=== PATIENT | female | born 1945 | race Caucasian/White ===

== ENCOUNTER 2019-04-16 23:04 | Inpatient (IN) ==
[2019-04-17] MEDS ORDERED: MAGNESIUM SULF RIDER 4 GM in PREMIX 1 EACH IV PRN (02:43)
[2019-04-17] MEDS ORDERED: MAGNESIUM SULF RIDER 2 GM in PREMIX 1 EACH IV PRN (02:43)
[2019-04-17] MEDS: ONDANSETRON 4 MG/2 ML VIAL IV PRN (03:16)
[2019-04-17] MEDS: SIMETHICONE CHEW 125 MG TABLET PO PRN ×3 (03:18→21:19)
[2019-04-17] MEDS: SODIUM CHLORIDE 0.9% 1,000 ML IV SCH ×2 (03:18→14:03)
[2019-04-17 08:54] LABS: Basophils % 0.7 % (0.0-0.8); Hematocrit 30.9 VOL% (35.7-47.0); Hemoglobin 9.9 GM/DL (12.0-16.0); Immature Granulocytes Absolute 0.04 #; Lymphocytes # 0.5 10*3/uL (1.4-4.0); Lymphocytes % 12.2 % (21.3-54.2); Mean Corpuscular Volume 93.4 FL (87-102); Monocytes % 14.4 % (1.7-12.7); Neutrophils % 70.7 % (38.7-73.9); Platelet Count 125 T/CUMM (130-400); Red Blood Count 3.31 MC/CUMM (3.8-5.5); Red Cell Distribution Width 19.9 % (9.3-17.3); White Blood Count 4.2 T/CUMM (4-12)
[2019-04-17 09:10] LABS: Albumin 2.5 G/DL (3.4-5.0); Bilirubin,Total 0.6 MG/DL (0.2-1.0); Calcium 7.4 MG/DL (8.5-10.1); Osmolality,Calculated 271.8 MOS/KG (273-304); Total Protein 5.2 G/DL (6.4-8.3)
[2019-04-17 09:22] LABS: Anisocytosis 1+; Band Neutrophils 49 % (0-10); Eosinophils 1 % (0-10); Lymphocytes 14 % (20-55); Macrocytosis 1+; Metamyelocytes 1 %; Myelocytes 1 %; Platelet Estimate Adequate; Poikilocytosis Slight; Polychromasia Slight; Segmented Neutrophils 22 % (50-85); Total Cells Counted 100
[2019-04-17] MEDS ORDERED: POTASSIUM CHLORIDE RIDER 10 MEQ in PREMIX 1 EACH IV PRN (09:43)
[2019-04-17] MEDS: POTASSIUM CHLORIDE 20 MEQ TABLET PO PRN ×4 (11:46→21:19)
[2019-04-18] MEDS: SODIUM CHLORIDE 0.9% 1,000 ML IV SCH ×3 (00:08→22:23)
[2019-04-18 05:17] LABS: Basophils % 1.3 % (0.0-0.8); Eosinophils # 0.1 10*3/uL (0.0-0.87); Eosinophils % 2.8 % (0.00-10.9); Hematocrit 29.9 VOL% (35.7-47.0); Hemoglobin 9.3 GM/DL (12.0-16.0); Immature Granulocytes % 0.9 %; Immature Granulocytes Absolute 0.03 #; Lymphocytes # 0.7 10*3/uL (1.4-4.0); Lymphocytes % 22.2 % (21.3-54.2); Mean Corpuscular HGB Conc 31.1 GM/DL (32-36); Mean Corpuscular Volume 94.9 FL (87-102); Monocytes % 26.3 % (1.7-12.7); Neutrophils % 46.5 % (38.7-73.9); Platelet Count 134 T/CUMM (130-400); Red Blood Count 3.15 MC/CUMM (3.8-5.5); Red Cell Distribution Width 19.5 % (9.3-17.3); White Blood Count 3.2 T/CUMM (4-12)
[2019-04-18 05:46] LABS: Band Neutrophils 4 % (0-10); Eosinophils 3 % (0-10); Lymphocytes 29 % (20-55); Segmented Neutrophils 43 % (50-85); Total Cells Counted 100
[2019-04-18 05:47] LABS: Anisocytosis 1+; Atypical Lymphocytes Few; Hypochromasia Slight; Microcytosis 1+; Ovalocytes Slight
[2019-04-18 05:48] LABS: Platelet Estimate Adequate; Tear Drop Cells Slight
[2019-04-18 06:05] LABS: Albumin 2.4 G/DL (3.4-5.0); Bilirubin,Total 0.6 MG/DL (0.2-1.0); Calcium 7.4 MG/DL (8.5-10.1); Osmolality,Calculated 272.7 MOS/KG (273-304)
[2019-04-18] MEDS: POTASSIUM CHLORIDE 20 MEQ TABLET PO PRN ×2 (08:29→20:57)
[2019-04-18] MEDS: SIMETHICONE CHEW 125 MG TABLET PO PRN ×2 (08:30→14:09)
[2019-04-18] MEDS ORDERED: LOPERAMIDE 2 MG CAPSULE PO ONE (11:03)
[2019-04-18] MEDS: CHOLESTYRAMINE 4 GM PACK PO SCH ×2 (11:43→20:57)
[2019-04-18] MEDS: DIPHENOXYLATE/ATROPINE 2.5-0.025 MG TABLET PO PRN (11:43)
[2019-04-18] MEDS: LOPERAMIDE 2 MG CAPSULE PO PRN (20:57)
[2019-04-19] MEDS: POTASSIUM CHLORIDE 20 MEQ TABLET PO PRN ×4 (00:12→13:14)
[2019-04-19 06:07] LABS: Basophils # 0.1 10*3/uL (0.0-0.2); Basophils % 1.4 % (0.0-0.8); Eosinophils # 0.1 10*3/uL (0.0-0.87); Eosinophils % 2.5 % (0.00-10.9); Hematocrit 32.1 VOL% (35.7-47.0); Hemoglobin 10.2 GM/DL (12.0-16.0); Immature Granulocytes % 1.1 %; Immature Granulocytes Absolute 0.04 #; Lymphocytes # 0.7 10*3/uL (1.4-4.0); Lymphocytes % 20.4 % (21.3-54.2); Mean Corpuscular HGB Conc 31.8 GM/DL (32-36); Monocytes % 31.4 % (1.7-12.7); Neutrophils % 43.2 % (38.7-73.9); Platelet Count 166 T/CUMM (130-400); Red Blood Count 3.45 MC/CUMM (3.8-5.5); Red Cell Distribution Width 18.7 % (9.3-17.3); White Blood Count 3.5 T/CUMM (4-12)
[2019-04-19 06:32] LABS: Atypical Lymphocytes Few; Band Neutrophils 7 % (0-10); Eosinophils 3 % (0-10); Lymphocytes 17 % (20-55); Microcytosis 1+; Ovalocytes Few; Segmented Neutrophils 48 % (50-85); Total Cells Counted 100
[2019-04-19 06:33] LABS: Anisocytosis 1+; Hypochromasia 1+; Platelet Estimate Adequate; Tear Drop Cells Slight
[2019-04-19 06:56] LABS: Albumin 2.4 G/DL (3.4-5.0); Bilirubin,Total 0.7 MG/DL (0.2-1.0); Calcium 7.8 MG/DL (8.5-10.1); Total Protein 5.2 G/DL (6.4-8.3)
[2019-04-19] MEDS: CHOLESTYRAMINE 4 GM PACK PO SCH ×2 (08:26→22:09)
[2019-04-19] MEDS: DIPHENOXYLATE/ATROPINE 2.5-0.025 MG TABLET PO PRN ×2 (08:27→22:16)
[2019-04-19] MEDS: SIMETHICONE CHEW 125 MG TABLET PO PRN ×2 (08:30→14:17)
[2019-04-19] MEDS: SODIUM CHLORIDE 0.9% 1,000 ML IV SCH ×2 (09:53→23:08)
[2019-04-19] MEDS: DICYCLOMINE 10 MG CAPSULE PO PRN ×2 (14:17→22:09)
[2019-04-19] MEDS: ONDANSETRON 4 MG/2 ML VIAL IV PRN (14:18)
[2019-04-19] MEDS: LOPERAMIDE 2 MG CAPSULE PO PRN (22:10)
[2019-04-20 04:41] LABS: Basophils % 1.1 % (0.0-0.8); Eosinophils # 0.2 10*3/uL (0.0-0.87); Eosinophils % 6.3 % (0.00-10.9); Hematocrit 30.2 VOL% (35.7-47.0); Hemoglobin 9.4 GM/DL (12.0-16.0); Immature Granulocytes % 3.7 %; Immature Granulocytes Absolute 0.13 #; Lymphocytes % 27.4 % (21.3-54.2); Mean Corpuscular HGB Conc 31.1 GM/DL (32-36); Mean Corpuscular Volume 95.3 FL (87-102); Mean Platelet Volume 9.8 FL (9.6-12.0); Monocytes % 26.6 % (1.7-12.7); Neutrophils % 34.9 % (38.7-73.9); Platelet Count 169 T/CUMM (130-400); Red Blood Count 3.17 MC/CUMM (3.8-5.5); Red Cell Distribution Width 18.8 % (9.3-17.3); White Blood Count 3.5 T/CUMM (4-12)
[2019-04-20 05:04] LABS: Band Neutrophils 14 % (0-10); Eosinophils 8 % (0-10); Hypochromasia 2+; Lymphocytes 23 % (20-55); Metamyelocytes 1 %; Platelet Estimate Normal; Segmented Neutrophils 27 % (50-85); Total Cells Counted 100
[2019-04-20 05:05] LABS: Albumin 2.2 G/DL (3.4-5.0); Bilirubin,Total 0.5 MG/DL (0.2-1.0); Calcium 7.9 MG/DL (8.5-10.1); Osmolality,Calculated 270.7 MOS/KG (273-304); Total Protein 4.9 G/DL (6.4-8.3)
[2019-04-20] MEDS: CHOLESTYRAMINE 4 GM PACK PO SCH (08:33)
[2019-04-20] MEDS: POTASSIUM CHLORIDE 20 MEQ TABLET PO PRN (08:34)
[2019-04-20] MEDS: DIPHENOXYLATE/ATROPINE 2.5-0.025 MG TABLET PO PRN (08:34)
[2019-04-20] MEDS: DICYCLOMINE 10 MG CAPSULE PO PRN (08:34)
[2019-04-20] MEDS: SIMETHICONE CHEW 125 MG TABLET PO PRN (08:34)
[2019-04-20 12:00] VITALS: BP 132/72
== END 2019-04-20 16:49 | disposition home health service (06) | DRG 392 ==
LOC: N.4E → SUATTDRO 04-17 00:41
PROVIDERS: ADMIT Internal Medicine; ATTEND Internal Medicine Cardiovascular Disease